=== PATIENT | female | born 1970 | race Caucasian/White ===

== ENCOUNTER 2024-04-19 12:25 | Emergency (ER) | payer BC ==
[2024-04-19] MEDS: Sodium Chloride 0.9% 1,000 ML IV ONE (12:46)
[2024-04-19] MEDS: Ondansetron 4 MG/2 ML SDV IVPUSH ONE (12:56)
[2024-04-19] MEDS: Ketorolac 30 MG/ML SDV IVPUSH ONE (12:58)
[2024-04-19] MEDS: diphenhydrAMINE 50 MG/ML SDV IVPUSH ONE (13:05)
== END 2024-04-19 14:30 | disposition home or self-care (01) ==
LOC: KA.ED 12:25
DX: G43.009 Migraine without aura, not intractable, without status migrainosus (principal); Z79.899 Other long term (current) drug therapy
CPT/HCPCS: 96361; 96365; 96375; 99283-25; J1200; J1885; J2405; J2800; J3490; J7030